=== PATIENT | male | born 1985 | race Two or more races ===

== ENCOUNTER 2023-12-21 20:17 | Inpatient (IN) | payer SELFPAY ==
[~2023-12-21] VITALS: Ht 182.9 cm; Wt 84.8 kg
[2023-12-21] MEDS: NALOXONE HCL 0.4MG/ML 1ML VIAL IV ONE (21:35)
[2023-12-21 23:15] LABS: BASOPHILS % 0.1 % (0.0-2.0); DIFFERENTIAL COMMENT 0; HEMATOCRIT. 43.9 % (42.0-52.0); HEMOGLOBIN. 13.9 g/dL (14.0-18.0); LYMPHOCYTES % 8.8 % (20.0-50.0); MEAN CORPUSCULAR HEMOGLOBIN 24.2 pg (28.0-32.0); MEAN CORPUSCULAR HGB CONC 31.7 g/dL (31.0-37.0); MEAN CORPUSCULAR VOLUME 76.3 fL (80.0-94.0); MEAN PLATELET VOLUME 8.9 fl (7.4-10.4); MONOCYTES % 12.8 % (2.0-8.0); NEUTROPHILS % 78.3 % (40.0-76.0); PLATELET 164 x1000/uL (130-400); RED BLOOD CELL COUNT 5.76 mill/uL (4.7-6.1); RED CELL DISTRIBUTION WIDTH 16.7 % (11.6-14.6); WHITE BLOOD COUNT 9.4 x1000/uL (4.5-11.0)
[2023-12-21 23:20] LABS: CHLORIDE 111 mEq/L (98-107)
[2023-12-21 23:21] LABS: CARBON DIOXIDE 21 mEq/L (21-32); POTASSIUM 4.3 mEq/L (3.5-5.1); SODIUM 146 mEq/L (136-145)
[2023-12-21 23:27] LABS: GLUCOSE 95 mg/dL (70-105); UREA NITROGEN BLOOD 22 mg/dL (9-23)
[2023-12-21 23:29] LABS: ACETAMINOPHEN < 2 ug/mL (10-30)
[2023-12-21 23:33] LABS: ETHANOL BLOOD < 10 mg/dL (<10)
[2023-12-22] MEDS ORDERED: ONDANSETRON HCL 4MG/2ML INJ IV PRN (02:45)
[2023-12-22] MEDS ORDERED: IPRATROPIUM/ALBUTEROL 0.5-3(2.5)MG/3ML NEB HHN PRN ×2 (03:00→06:45)
[2023-12-22] MEDS: DEXT 5%/0.45% NACL 1000ML 1,000 ML IV SCH (03:35)
[2023-12-22 05:46] LABS: BASOPHILS % 0.6 % (0.0-2.0); DIFFERENTIAL COMMENT 0; EOSINOPHILS % 0.1 % (0.0-5.0); HEMATOCRIT. 42.8 % (42.0-52.0); HEMOGLOBIN. 13.6 g/dL (14.0-18.0); LYMPHOCYTES % 12.6 % (20.0-50.0); MEAN CORPUSCULAR HEMOGLOBIN 23.9 pg (28.0-32.0); MEAN CORPUSCULAR HGB CONC 31.8 g/dL (31.0-37.0); MEAN CORPUSCULAR VOLUME 75.2 fL (80.0-94.0); MONOCYTES % 12.8 % (2.0-8.0); NEUTROPHILS % 73.9 % (40.0-76.0); PLATELET 174 x1000/uL (130-400); RED BLOOD CELL COUNT 5.69 mill/uL (4.7-6.1); RED CELL DISTRIBUTION WIDTH 16.9 % (11.6-14.6); WHITE BLOOD COUNT 8.8 x1000/uL (4.5-11.0)
[2023-12-22 06:00] LABS: CALCIUM 9.8 mg/dL (8.7-10.4); POTASSIUM 4.2 mEq/L (3.5-5.1)
[2023-12-22 06:06] LABS: CREATININE 1.7 mg/dL (0.6-1.3)
[2023-12-22 06:08] LABS: T4 FREE 1.32 ng/dL (0.89-1.76)
[2023-12-22 06:09] LABS: THYROID STIMULATING HORMONE 0.14 uIU/mL (0.55-4.78)
[2023-12-22 06:15] LABS: FOLIC ACID (FOLATE) SERUM > 20.00 ng/mL (>5.38); VITAMIN B12 SERUM 667 pg/mL (211-911)
[2023-12-22] MEDS: PANTOPRAZOLE SODIUM 40 MG/VIAL IV SCH (07:02)
[2023-12-22] MEDS ORDERED: ENOXAPARIN 40MG/0.4ML SYR SUBCUT SCH (09:00)
[2023-12-22] MEDS: HYDRALAZINE 20MG/ML VIAL IV PRN (10:40)
[2023-12-23 01:12] LABS: CLARITY URINE CLEAR (CLEAR); COLOR URINE YELLOW (YELLOW); GLUCOSE URINE NEGATIVE (NEGATIVE); KETONES URINE 1+ (NEGATIVE); LEUKOCYTE ESTERASE URINE NEGATIVE (NEGATIVE); NITRITE URINE NEGATIVE (NEGATIVE); OCCULT BLOOD URINE NEGATIVE (NEGATIVE); PROTEIN URINE 1+ (NEGATIVE); SPECIFIC GRAVITY URINE 1.024 (1.005-1.030)
[2023-12-23 02:31] LABS: SQUAMOUS EPITHELIAL CELL URINE FEW /lpf (RARE/1+)
[2023-12-23 02:32] LABS: BACTERIA URINE NONE SEEN; RBC URINE 0-2 /hpf (0-2); WBC URINE 0-2 /hpf (0-2)
[2023-12-23 16:45] VITALS: BP 120/64; PULSE 86; RESP 18; TEMP 97.1
[2023-12-23 20:00] VITALS: BP 126/86; PULSE 92; RESP 19; TEMP 98.9
[2023-12-23 20:21] VITALS: BP 126/86; PULSE 93; RESP 15; TEMP 98
[2023-12-24] VITALS: BP 156/87; PULSE 93; RESP 18; TEMP 97.9
[2023-12-24 04:00] VITALS: BP 119/85; PULSE 98; RESP 18; TEMP 98.1
[2023-12-24 08:00] VITALS: BP 125/90; PULSE 96; RESP 18
[2023-12-24] MEDS: THIAMINE HCL IV SCH (11:02)
[2023-12-24] MEDS: SODIUM CHLORIDE 0.9% IV SCH (11:02)
[2023-12-24] MEDS ORDERED: LORAZEPAM 2MG/ML INJ IV PRN (11:30)
[2023-12-24 12:00] VITALS: BP 141/90
[2023-12-24 16:06] LABS: BASOPHILS % 0.4 % (0.0-2.0); DIFFERENTIAL COMMENT 0; EOSINOPHILS % 0.2 % (0.0-5.0); HEMATOCRIT. 45.1 % (42.0-52.0); LYMPHOCYTES % 12.1 % (20.0-50.0); MEAN CORPUSCULAR HEMOGLOBIN 24.1 pg (28.0-32.0); MEAN CORPUSCULAR VOLUME 77.6 fL (80.0-94.0); MONOCYTES % 10.8 % (2.0-8.0); NEUTROPHILS % 76.5 % (40.0-76.0); PLATELET 87 x1000/uL (130-400); RED BLOOD CELL COUNT 5.81 mill/uL (4.7-6.1); RED CELL DISTRIBUTION WIDTH 16.8 % (11.6-14.6); WHITE BLOOD COUNT 9.9 x1000/uL (4.5-11.0)
[2023-12-24 16:10] LABS: CHLORIDE 112 mEq/L (98-107); POTASSIUM 3.7 mEq/L (3.5-5.1); SODIUM 145 mEq/L (136-145)
[2023-12-24 16:11] LABS: CARBON DIOXIDE 23 mEq/L (21-32)
[2023-12-24 16:12] LABS: CALCIUM 9.3 mg/dL (8.7-10.4)
[2023-12-24 16:16] LABS: GLUCOSE 101 mg/dL (70-105)
[2023-12-24 16:17] LABS: UREA NITROGEN BLOOD 9 mg/dL (9-23)
[2023-12-24 16:18] LABS: ALANINE AMINOTRANSFERASE 40 IU/L (10-49); ALBUMIN 4.3 g/dL (3.2-4.8); ASPARTATE AMINOTRANSFERASE 41 IU/L (<34); CREATINE KINASE 264 IU/L (46-171)
[2023-12-24 16:19] LABS: BILIRUBIN TOTAL 0.5 mg/dL (0.1-1.0); PHOSPHORUS 3.2 mg/dL (2.5-4.9); PROTEIN TOTAL 7.5 g/dL (6.0-8.3)
[2023-12-24 16:21] LABS: THYROID STIMULATING HORMONE 0.52 uIU/mL (0.55-4.78)
[2023-12-24 20:00] VITALS: BP 123/91; PULSE 92; RESP 20; TEMP 97.5
[2023-12-25] VITALS: BP 136/90; PULSE 106; RESP 20; TEMP 97.5
[2023-12-25 04:00] VITALS: BP 140/100; PULSE 91; RESP 19; TEMP 97.8
[2023-12-25 08:00] VITALS: BP 153/93; PULSE 87; RESP 19; TEMP 98.9
[2023-12-25 12:00] VITALS: BP 134/86; PULSE 74; RESP 18; TEMP 98.7
[2023-12-26 02:12] LABS: *AMPHETAMINES SCREEN URINE NEGATIVE (NEGATIVE); *BARBITURATES SCREEN URINE NEGATIVE (NEGATIVE); *BENZODIAZEPINES SCREEN URINE NEGATIVE (NEGATIVE); *COCAINE SCREEN URINE NEGATIVE (NEGATIVE); METHADONE URINE SCREEN NEGATIVE (NEGATIVE)
[2023-12-26 02:13] LABS: CANNABINOID URINE SCREEN NEGATIVE (NEGATIVE); ECSTASY MDMA SCREEN URINE NEGATIVE (NEGATIVE); OPIATES URINE SCREEN NEGATIVE (NEGATIVE); PHENCYCLIDINE URINE SCREEN NEGATIVE (NEGATIVE)
[2023-12-26 08:00] VITALS: BP 118/81; PULSE 96; RESP 19; TEMP 98.2
[2023-12-26] MEDS ORDERED: FOLI-64 MT (13:10)
[2023-12-26 13:27] VITALS: BP 123/72; PULSE 78; TEMP 98; O2SAT 98
== END 2023-12-26 14:44 | disposition home or self-care (01) | DRG 812 ==
LOC: ER 20:17 → 5WST 12-22 00:43 → EDBD 12-22 00:43 → 7EST 12-23 17:53
PROVIDERS: ADMIT Internal Medicine; ATTEND Internal Medicine
DX: T50.991A Poisoning by other drugs, medicaments and biological substances, accidental (unintentional), initial encounter (principal); G92.8 Other toxic encephalopathy; N17.9 Acute kidney failure, unspecified; E87.0 Hyperosmolality and hypernatremia; M62.82 Rhabdomyolysis; E87.8 Other disorders of electrolyte and fluid balance, not elsewhere classified; E86.0 Dehydration; D64.9 Anemia, unspecified; Z59.00 Homelessness unspecified; Z79.899 Other long term (current) drug therapy; Y92.89 Other specified places as the place of occurrence of the external cause
CPT/HCPCS: 36415; 71045; 80048; 80053; 80069; 80305; 80307; 80320; 80329; 81003; 82550; 82607; 82746; 82947; 83605; 83735; 84145; 84425; 84439; 84443; 85025; 93005; 93970; J0360; J2310; J2470; J3411; A4315; G0480